=== PATIENT | male | born 1945 | race Two or more races ===

== ENCOUNTER → 2016-10-17 | Outpatient (CLI) | payer MEDICARE, MEDICAID ==
[2016-10-17 11:30] LABS: CHOLESTEROL 142.91 mg/dL (0-200); Direct HDL 39 mg/dL (>40); TRIGLYCERIDES 100 mg/dL (<150)
[2016-10-17 11:41] LABS: DIRECT LDL 90 mg/dL (<100)
== END ==
LOC: LAB 10:49
PROVIDERS: ATTEND Internal Medicine
DX: E78.5 Hyperlipidemia, unspecified (principal); E11.9 Type 2 diabetes mellitus without complications
CPT/HCPCS: 36415; 80061; 82043; 83036

== ENCOUNTER → 2017-01-29 | Outpatient (CLI) | payer MEDICARE, MEDICAID ==
[2017-01-29 12:02] LABS: ABSOLUTE BASOPHILS # (AUTO) 0.1 10^3/uL (0.0-0.2); ABSOLUTE EOSINOPHILS # (AUTO) 0.3 10^3/uL (0.0-0.6); ABSOLUTE LYMPHOCYTES (AUTO) 2.7 10^3/uL (0.5-4.7); ABSOLUTE NEUT (AUTO) 4.6 10^3/uL (1.7-8.2); BASOPHILS % (AUTO) 0.9 % (0-2); EOSINOPHILS % (AUTO) 3.7 % (0-6); HEMATOCRIT 42.7 % (37.9-51.0); HEMOGLOBIN 13.9 g/dL (13.5-17.0); LYMPHOCYTES % (AUTO) 31.2 % (13-45); MEAN CORPUSCULAR HEMOGLOBIN 29.8 pg (27.0-33.4); MEAN CORPUSCULAR HGB CONC 32.6 g/dL (32.0-36.0); MEAN CORPUSCULAR VOLUME 92 fl (80-97); MONOCYTES % (AUTO) 11.3 % (3-13); RED BLOOD COUNT 4.67 10^6/uL (4.35-5.55); RED CELL DISTRIBUTION WIDTH 14.8 % (11.5-14.0); SEGMENTED NEUTROPHILS % (AUTO) 52.9 % (42-78); WHITE BLOOD COUNT 8.7 10^3/uL (4.0-10.5)
[2017-01-29 12:18] LABS: ALANINE AMINOTRANSFERASE 36 U/L (21-72); ALBUMIN 4.9 g/dL (3.5-5.0); ALKALINE PHOSPHATASE 73 U/L (38-126); ANION GAP 14 (5-19); ASPARTATE AMINO TRANSFERASE 33 U/L (17-59); BILIRUBIN,DIRECT 0.4 mg/dL (0.0-0.4); BILIRUBIN,TOTAL 0.8 mg/dL (0.2-1.3); BLOOD UREA NITROGEN 25 mg/dL (7-20); CALCIUM 10.5 mg/dL (8.4-10.2); CARBON DIOXIDE 23 mmol/L (22-30); CHLORIDE 103 mmol/L (98-107); CHOLESTEROL 192.24 mg/dL (0-200); CREATININE RESULT 0.67 mg/dL (0.52-1.25); Direct HDL 48 mg/dL (>40); GLUCOSE 115 mg/dL (75-110); POTASSIUM 4.9 mmol/L (3.6-5.0); SODIUM 139.5 mmol/L (137-145); TOTAL PROTEIN 8.2 g/dL (6.3-8.2); TRIGLYCERIDES 91 mg/dL (<150)
[2017-01-29 12:31] LABS: DIRECT LDL 121 mg/dL (<100)
[2017-01-30 11:40] LABS: CREATININE URINE 67.8 mg/dL (Not Estab.); MICROALBUMIN URINE 44.4 ug/mL (Not Estab.)
== END ==
LOC: LAB 11:39
PROVIDERS: ATTEND Family Medicine Geriatric Medicine
DX: E11.9 Type 2 diabetes mellitus without complications (principal); I10 Essential (primary) hypertension; E78.5 Hyperlipidemia, unspecified; N40.1 Benign prostatic hyperplasia with lower urinary tract symptoms; Z79.899 Other long term (current) drug therapy
CPT/HCPCS: 36415; 80053; 80061; 82043; 82570; 83036; 84153; 84443; 85025

== ENCOUNTER → 2017-05-08 | Outpatient (CLI) | payer MEDICARE, MEDICAID ==
[2017-05-08 11:52] LABS: ALANINE AMINOTRANSFERASE 55 U/L (21-72); ALBUMIN 4.7 g/dL (3.5-5.0); ALKALINE PHOSPHATASE 82 U/L (38-126); ANION GAP 12 (5-19); ASPARTATE AMINO TRANSFERASE 48 U/L (17-59); BILIRUBIN,DIRECT 0.4 mg/dL (0.0-0.4); BILIRUBIN,TOTAL 0.7 mg/dL (0.2-1.3); BLOOD UREA NITROGEN 23 mg/dL (7-20); CALCIUM 10.2 mg/dL (8.4-10.2); CARBON DIOXIDE 26 mmol/L (22-30); CHLORIDE 103 mmol/L (98-107); CHOLESTEROL 113.32 mg/dL (0-200); CREATININE RESULT 0.66 mg/dL (0.52-1.25); Direct HDL 53 mg/dL (>40); GLUCOSE 113 mg/dL (75-110); POTASSIUM 4.3 mmol/L (3.6-5.0); SODIUM 140.9 mmol/L (137-145); TOTAL PROTEIN 7.2 g/dL (6.3-8.2); TRIGLYCERIDES 43 mg/dL (<150)
[2017-05-08 12:02] LABS: DIRECT LDL 45 mg/dL (<100)
[2017-05-09 10:38] LABS: CREATININE URINE 122.1 mg/dL (Not Estab.); MICROALBUMIN URINE 79.8 ug/mL (Not Estab.)
== END ==
LOC: LAB 11:02
PROVIDERS: ATTEND Family Medicine Geriatric Medicine
DX: E11.9 Type 2 diabetes mellitus without complications (principal); I10 Essential (primary) hypertension; E83.52 Hypercalcemia; Z79.899 Other long term (current) drug therapy
CPT/HCPCS: 36415; 80048; 80061; 80076; 82043; 82570; 83970

== ENCOUNTER → 2017-05-22 | Outpatient (CLI) | payer MEDICARE, MEDICAID ==
--- NOTE | 2017-05-22 16:09 | RADIOLOGY REPORT (SQ) ---
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 Selected additional c olor/power Doppler images recorded. All images stored to PACS. LIMITATIONS: None. FINDINGS: RIGHT LOBE: Normal size, 4.2 x 2 x 1.1 cm. Homogeneous echotexture. Tiny [address] lower pole right lobe thyroid. No solid masses. LEFT LOBE: Normal size, 3.8 x 2.1 x 1.4 cm Homogeneous echotexture. No cystic or solid masses. ISTHMUS: Normal size. Homogeneous echotexture. No cystic or solid masses. OTHER: Patient describes swelling under his right and left mandibular ankles bilaterally. Normal siz e submandibular glands are present without calculi. No lymph nodes. Incidental finding of soft plaque in the left common carotid artery with less than 50% diameter narro wing. This is similar compared to carotid Doppler 08/29/2016. IMPRESSION: NORMAL THYROID ULTRASOUND. No focal masses in the right or left submandibular triangle TECHNICAL DOCUMENTATION: JOB ID: [id number] [employer]- All Rights Reserved
== END ==
LOC: RAD 12:28
PROVIDERS: ATTEND Family Medicine Geriatric Medicine
DX: E01.0 Iodine-deficiency related diffuse (endemic) goiter (principal)
CPT/HCPCS: 76536

== ENCOUNTER → 2017-08-07 | Outpatient (CLI) | payer MEDICARE, MEDICAID ==
[2017-08-08 11:40] LABS: CREATININE URINE 78.8 mg/dL (Not Estab.); MICROALBUMIN URINE 75.6 ug/mL (Not Estab.)
== END ==
LOC: LAB 12:27
PROVIDERS: ATTEND Family Medicine Geriatric Medicine
DX: E11.8 Type 2 diabetes mellitus with unspecified complications (principal); Z79.899 Other long term (current) drug therapy
CPT/HCPCS: 36415; 82043; 82570; 83036

== ENCOUNTER 2017-11-01 10:32 | Day surgery (SDC) | payer MEDICARE, MEDICAID ==
[~2017-11-01 10:32] MED LIST: CEFAZOLIN 1 GM/D5W RTU 1 GM/50 ML RTUPB IV PRN; LACTATED RINGERS 1000 ML IV PRN; LIDOCAINE 0.5% INJ-PF (5 MG/ML) 50 ML SDV SUBCUT PRN
[2017-11-01] MEDS ORDERED: ALBUTEROL SULFATE 0.083% NEB 2.5 MG/3 ML AMPUL NEB ONE (11:07)
[2017-11-01 11:43] LABS: HEMATOCRIT 37.1 % (37.9-51.0); HEMOGLOBIN 12.7 g/dL (13.5-17.0); MEAN CORPUSCULAR HEMOGLOBIN 31.3 pg (27.0-33.4); MEAN CORPUSCULAR HGB CONC 34.3 g/dL (32.0-36.0); MEAN CORPUSCULAR VOLUME 91 fl (80-97); PLATELET COUNT 190 10^3/uL (150-450); RED BLOOD COUNT 4.07 10^6/uL (4.35-5.55); RED CELL DISTRIBUTION WIDTH 13.2 % (11.5-14.0); WHITE BLOOD COUNT 7.2 10^3/uL (4.0-10.5)
[2017-11-01] MEDS ORDERED: FAMOTIDINE INJ/PF 20 MG/2 ML SDV IV ONE (11:45)
[2017-11-01] MEDS ORDERED: METOPROLOL TARTRATE 25 MG TABLET PO ONE (12:00)
[2017-11-01 12:01] LABS: ANION GAP 11 (5-19); BLOOD UREA NITROGEN 26 mg/dL (7-20); CARBON DIOXIDE 27 mmol/L (22-30); CHLORIDE 102 mmol/L (98-107); GLUCOSE 171 mg/dL (75-110); POTASSIUM 3.8 mmol/L (3.6-5.0); SODIUM 139.9 mmol/L (137-145)
[2017-11-01] MEDS ORDERED: OXYMETAZOLINE HCL 0.05% NASAL SPRAY 15 ML BOTTLE ONE (13:04)
--- NOTE | 2017-11-01 13:22 | EKG REPORT ---
SEVERITY:- ABNORMAL ECG - SINUS TACHYCARDIA FIRST DEGREE AV BLOCK LEFT BUNDLE BRANCH BLOCK : Confirmed by: Ricardo Giraldo MD 01-Nov-2017 13:21:30
[2017-11-01] MEDS ORDERED: FENTANYL CITRATE INJ/PF 100 MCG/2 ML AMPUL ONE (14:55)
[2017-11-01] MEDS ORDERED: MIDAZOLAM 2 MG/2 ML INJ ONE (14:56)
[2017-11-01] MEDS ORDERED: PROPOFOL INJ 200 MG/20 ML VIAL IV ONE (14:56)
[2017-11-01] MEDS ORDERED: KETAMINE HCL INJ 500 MG/10 ML VIAL ONE (15:14)
[2017-11-01] MEDS ORDERED: ONDANSETRON HCL INJ/PF 4 MG/2 ML SDV ONE (15:31)
[2017-11-01] MEDS ORDERED: LIDOCAINE 2% INJ-PF (20 MG/ML) 2 ML AMPUL ONE (15:31)
[2017-11-01] MEDS ORDERED: DEXAMETHASONE SOD PHOSPHATE INJ 4 MG/1 ML VIAL ONE (15:31)
[2017-11-01] MEDS ORDERED: SUCCINYLCHOLINE CHLORIDE INJ 200 MG/10 ML VIAL ONE (15:31)
[2017-11-01] MEDS ORDERED: PHENYLEPHRINE HCL INJ/PF 10 MG/1 ML SDV ONE (15:31)
[2017-11-01] MEDS ORDERED: RINGERS SOLUTION,LACTATED 1,000 ML IV PRN (16:05)
[2017-11-01] MEDS ORDERED: HYDROCOD/ACETAMIN 7.5-325 MG/15 ML ORAL SOLN UDCUP PO PRN (16:08)
[2017-11-01] MEDS ORDERED: ONDANSETRON HCL INJ/PF 4 MG/2 ML SDV IV PRN (16:08)
[2017-11-01] MEDS ORDERED: ACETAMINOPHEN 100 ML IV ONE (17:20)
[2017-11-01 18:46] VITALS: BP 132/67
--- NOTE | 2017-11-04 20:54 | OPERATIVE REPORT E ---
Operative Report NAME: DESTINEY HERRERA : 1945 AGE: 71Y DATE OF SURGERY: 11/01/2017 ROOM: PREOPERATIVE DIAGNOSES: 1. HYPOPHARYNGEAL MASS. 2. CHRONIC DYSPHAGIA. POSTOPERATIVE DIAGNOSES: 1. HYPOPHARYNGEAL MASS. 2. CHRONIC DYSPHAGIA. OPERATION PERFORMED: Rigid pharyngoscopy with directed biopsies. SURGEON: DEIRDRE ELDRIDGE D.O. ANESTHETIC: General endotracheal tube. ANESTHESIA STAFF: Noemy Pabon CRNA COMPLICATIONS: None. DRAINS: None. SPONGE COUNT: Verified. MATERIALS FORWARDED SPECIMEN: 1. Numerous biopsies from the right hypopharyngeal/base of tongue area. 2. Multiple biopsies from the laryngeal aspect of the epiglottis. 3. Multiple biopsies from the right true vocal cord. FINDINGS: 1. Right hypopharyngeal/base of tongue area with an exophytic, friable mass. 2. The laryngeal aspect of the epiglottis with an exophytic, friable mass. 3. 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 INDICATIONS: This is a 71-year-old male who was seen and evaluated in the [place] otolaryngology office. The patient with a 50-year smoking history and continues to smoke at present. The patient was referred by his PCM for evaluation with a history of persistent right sore throat discomfort for greater than 6 months. The patient otherwise denies fever, chills, night sweats, dysphagia, odynophagia, aspiration symptoms or unexplained weight loss. The patient's family members to include his son and daughter are present for clinic visit due to the patient's poor Belgian and as he is predominantly Croatian speaking. The patient underwent CT neck imaging with concern for a right aryepiglottic fold mass also extending and affecting the right epiglottis and base of tongue. On clinic endoscopies, there were findings as noted above. The patient underwent an extensive and lengthy medical workup to include cardiology clearance to be able to proceed to the main operating room. Once deemed medically stable for surgery, the patient was able to proceed with the previously-described rigid pharyngoscopy with directed biopsies. The procedure and all of its risks and complications were all discussed in detail with the patient's family. The patient and his family all voiced an understanding of all that had been discussed. They desired to proceed, and consent was obtained. PROCEDURE: The patient was taken to the main operating Room and placed on the operating room tablet in the supine position. Appropriate monitors were placed. Using mask and IV access, general anesthesia was induced. The patient was next transorally intubated without difficulty. The patient was then positioned and prepped for rigid laryngoscopy. There was a rigid laryngoscope that was passed with the areas of concern easily identified. Numerous biopsies were taken, as noted above, to include biopsies from the right true vocal cord. The pathologist verified that there was adequate tissue that had been received. At this point, 2 Afrin-soaked neuro patties were placed into the areas that had been biopsied. The rigid laryngoscope was withdrawn and the patient was returned to the anesthesia staff and was allowed to emerge from general anesthesia. The patient was extubated in the main operating room and was transported to the post anesthesia recovery unit in stable condition. There were no complications. DICTATING PHYSICIAN: DEIRDRE ELDRIDGE D.O. [id number] PHY#: [id number] ID: [id number] JOB#: [id number] ACCT: [id number] cc:DEIRDRE ELDRIDGE D.O. >
== END 2017-11-01 18:35 | disposition home or self-care (01) ==
LOC: OROUT 10:32
PROVIDERS: ATTEND Otolaryngology
PROC: 0CBM8ZX Excision of Pharynx, Via Natural or Artificial Opening Endoscopic, Diagnostic (ICD-10-PCS; principal; 2017-11-01 12:00)
DX: C13.9 Malignant neoplasm of hypopharynx, unspecified (principal); J39.2 Other diseases of pharynx; M54.2 Cervicalgia; J44.9 Chronic obstructive pulmonary disease, unspecified; I10 Essential (primary) hypertension; I25.10 Atherosclerotic heart disease of native coronary artery without angina pectoris; F17.210 Nicotine dependence, cigarettes, uncomplicated; E11.42 Type 2 diabetes mellitus with diabetic polyneuropathy; E11.21 Type 2 diabetes mellitus with diabetic nephropathy; E78.5 Hyperlipidemia, unspecified; I25.2 Old myocardial infarction; Z95.0 Presence of cardiac pacemaker; Z99.81 Dependence on supplemental oxygen; Z79.51 Long term (current) use of inhaled steroids; Z79.84 Long term (current) use of oral hypoglycemic drugs
CPT/HCPCS: 36415; 85027; 80048; 88305 ×2; 88331 ×2; 93005; 93010; 42999; J2250; J0690; J1100; J3010; J3490 ×3; J2370; J0330; J2405; J2704; S0028; A9270 ×2; J0131; 320

== ENCOUNTER → 2017-11-10 | Outpatient (CLI) | payer MEDICARE, MEDICAID ==
--- NOTE | 2017-11-11 11:57 | RADIOLOGY REPORT (SQ) ---
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 RADIONUCLIDE AND DOSE: 10.0 mCi F18 FDG The route of agent administration: Intravenous FASTING BLOOD SUGAR: 118 mg/dl CONTRAST TYPE AND DOSE: No CT contrast given. TECHNIQUE: Blood glucose level was verified. Above dose of FDG was injected intravenously. 2-D seg mented attenuation correction images were obtained from the base of the skull to the midthighs. Nonc ontrast CT images were obtained for attenuation correction and fusion with emission images. CT image s were performed without oral or intravenous contrast and are not sensitive for parenchymal lesions. A series of overlapping emission PET images were obtained. Images reviewed and manipulated at [facility][note 3][employer] work station by the radiologist. Images stored on PACS. LIMITATIONS: None. FINDINGS: HEAD AND NECK: Right side supraglottic mass extending from the tongue base to the level of the vocal cords. Mean SUV value 23.7. This corresponds with finding on previous CT. Small focal a artemio of increased activity in the soft tissues on the right side at the level of the thyroid cartilage (CT axial series 3, image 53). Mean SUV value 4.55. On noncontrast CT difficult to differentiate a soft tissue mass from the adjacent jugular vein. CHEST: No areas of abnormal metabolic activity in the chest. ABDOMEN AND PELVIS: No areas of abnormal metabolic activity in the abdomen or pelvis. Expected physi ologic activity is present in the genitourinary system and bowel. PROXIMAL LOWER EXTREMITIES: No areas of abnormal metabolic activity in the soft tissues of the lower extremities. BONES: No abnormal metabolic activity in the visualized skeleton. ADDITIONAL CT FINDINGS: No additional significant findings on the noncontrast CT images. OTHER: No other significant findings. IMPRESSION: 1. RIGHT SIDE SUPRAGLOTTIC MASS WITH INCREASED ACTIVITY CORRESPONDING TO KNOWN PRIMARY MALIGNANCY. A SMALL FOCAL AREA OF ACTIVITY IN THE SOFT TISSUES ON THE RIGHT SIDE DESCRIBED, LOCATED IMMEDIATELY ADJACENT TO THE JUGULAR VEIN AT THE LEVEL OF THE THYROID CARTILAGE, PRESUMABLY REPRESENTS A METASTAT IC LYMPH NODE, DIFFICULT TO VISUALIZE ON NONCONTRAST CT IMAGING. 2. NO AREAS OF ABNORMAL METABOLIC ACTIVITY IN THE CHEST, ABDOMEN, PELVIS, OR UPPER THIGHS. NO SIGNIF ICANT CT FINDINGS ELSEWHERE. TECHNICAL DOCUMENTATION: JOB ID: [id number] [employer]- All Rights Reserved Reading location - IP/workstation name: [email or web address]
== END ==
LOC: RAD 18:52
PROVIDERS: ATTEND Internal Medicine
DX: C01 Malignant neoplasm of base of tongue (principal)
CPT/HCPCS: 78815; A9552

== ENCOUNTER 2017-11-21 05:33 | Day surgery (SDC) | payer MEDICARE, MEDICAID ==
--- NOTE | 2017-11-20 13:16 | RADIOLOGY REPORT (SQ) ---
EXAM DESCRIPTION: CHEST PA/LATERAL COMPLETED DATE/TIME: 11/20/2017 12:23 pm REASON FOR STUDY: PRE OP COMPARISON: 09/05/2015. EXAM PARAMETERS: NUMBER OF VIEWS: two views TECHNIQUE: Digital Frontal and Lateral radiographic views of the chest acquired. RADIATION DOSE: NA LIMITATIONS: none FINDINGS: LUNGS AND PLEURA: Marked hyperinflation lungs compatible with COPD. Tenting of the left h emidiaphragm laterally consistent chronic left pleural thickening. No acute infiltrates. MEDIASTINUM AND HILAR STRUCTURES: No masses or contour abnormalities. HEART AND VASCULAR STRUCTURES: The heart is normal in size with normal pulmonary vasculature. . The heart is normal with aortic atherosclerosis. HARDWARE: None in the chest. OTHER: No other significant finding. IMPRESSION: COPD. Chronic left basilar scarring and pleural thickening. TECHNICAL DOCUMENTATION: JOB ID: [id number] [employer]- All Rights Reserved Reading location - IP/workstation name: [email or web address]
[~2017-11-21 05:33] MED LIST changes: +ACETAMINOPHEN 325 MG TABLET PO PRN; -LACTATED RINGERS 1000 ML IV PRN; +NORMAL SALINE 1000 ML (RENAL PATIENTS) IV PRN
[2017-11-21] MEDS ORDERED: LIDOCAINE 2% INJ-PF (20 MG/ML) 10 ML AMPUL ONE (07:03)
[2017-11-21] MEDS ORDERED: FENTANYL CITRATE INJ/PF 100 MCG/2 ML AMPUL ONE (07:03)
[2017-11-21] MEDS ORDERED: MIDAZOLAM 2 MG/2 ML INJ ONE (07:03)
[2017-11-21] MEDS ORDERED: PROPOFOL INJ 200 MG/20 ML VIAL IV ONE ×2 (07:04→07:05)
[2017-11-21] MEDS ORDERED: LIDOCAINE 1%/EPINEPHRINE INJ 20 ML VIAL ONE (07:21)
[2017-11-21] MEDS ORDERED: ONDANSETRON HCL INJ/PF 4 MG/2 ML SDV IV PRN (07:57)
[2017-11-21] MEDS ORDERED: FENTANYL CITRATE INJ/PF 100 MCG/2 ML AMPUL IV PRN ×3 (07:57)
[2017-11-21] MEDS ORDERED: OXYCODONE-ACETAMINOPHEN 5-325 MG TABLET PO PRN (07:57)
[2017-11-21] MEDS ORDERED: MEPERIDINE HCL/PF INJ 25 MG/1 ML DISP.SYRIN IV PRN (07:57)
[2017-11-21] MEDS ORDERED: PROMETHAZINE HCL INJ 25 MG/1 ML VIAL IV PRN (07:57)
[2017-11-21] MEDS ORDERED: DIPHENHYDRAMINE HCL 50 MG/ML VIAL IV PRN (07:57)
--- NOTE | 2017-11-21 08:44 | Discharge Summary ---
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 Referrals: TATA ORTEZ MD [Primary Care Provider] - Discharge Diet: Tube Feeding (Comments) - Per instructions. Discharge Activity: Activity As Tolerated Home Care Assistance: None Needed Report the Following to Your Physician Immediately: Shortness of Breath, Increase in Pain, Fever over 101 Degrees
--- NOTE | 2017-11-21 08:53 | Operative Report ---
Operative Report DATE OF SURGERY: 11/21/17 PREOPERATIVE DIAGNOSIS: Subglottic tumor right side POSTOPERATIVE DIAGNOSIS: Same with gastroparesis OPERATION: 1. Focused ultrasound of the right neck. 2. Ultrasound directed single-chamber Rfutqi-s-Mfta catheter in the subclavian position and the catheter in the right internal jugular vein. 3. Interpretation of intraoperative fluoroscopy. 4. Esophagogastroduodenoscopy. 5. Percutaneous endoscopic gastrostomy tube placement, 20 Rwandan, Endo vie SURGEON: JOHN NORRIS ANESTHESIA: LMAC TISSUE REMOVED OR ALTERED: None COMPLICATIONS: None ESTIMATED BLOOD LOSS: Scant INTRAOPERATIVE FINDINGS: See below PROCEDURE: The patient was taken to the preop holding her to the main operating room where he was placed in supine position arms tucked head and neck prepped and draped in sterile fashion for anticipated right sided port placement Surgical plan and surgical timeout were conducted Using ultrasound as a guide real-time, and the right internal jugular vein was cannulated after anesthetizing the skin with 1% plain lidocaine using the micropuncture needle and wire. A suitable site for placement of the port chamber was chosen in the right subclavian position. Skin was anesthetized with 1% plain lidocaine, 3 cm incision was made parallel to the goal, and the deep subcutaneous pocket developed with electrocautery blunt dissection. Tract between the port site and the neck stick site anesthetized with plain lidocaine, the catheter was then tunneled between the 2 wounds, trimmed to the appropriate length, attached to the port with the reinforcing ring. The port was tucked into the pocket. Under fluoroscopic guidance, we switched the micro wire over to a conventional 0.030 guidewire. The threaded the 9 Rwandan dilator and sheath over the wire under fluoroscopic guidance, removed the wire and dilator, threaded the catheter into the strip away sheath and removing the strip away sheath leaving the catheter in good position with the tip in the superior vena cava, no kinking of the catheter. There is no evidence of pneumothorax. There is no evidence of ectopy. The catheter was aspirated to the chamber function satisfactorily and was flushed with heparinized saline. Wounds closed with 3-0 Vicryl benzoin and Steri-Strips. This concluded the port placement portion of the procedure We now set the patient up for PEG placement. The endoscopy team was on the scene. Oral mouthpiece was inserted into the patient's mouth even though he was edentulous. The patient was placed in reverse Trendelenburg. A second timeout was conducted. The adult flexible upper endoscope was advanced through the hypopharynx around the distorted epiglottis secondary to tumor and down the upper esophagus. This proceeded uneventfully. The esophagus was grossly unremarkable. Once we are in the stomach, there was a moderate amount of retained undigested food. Photos were taken. The stomach could not be aspirated of this food through the scope. Therefore complete visualization of the stomach was limited however there was no evidence of gross endoluminal pathology. The scope was advanced to the pylorus into the first and second portions of the duodenum which were unremarkable. The scope was brought back to the pylorus which was unremarkable. There was no mechanical evidence of gastric outlet obstruction therefore I felt it was appropriate to place the feeding tube. A suitable site for placement of feeding tube was chosen on the patient's left upper abdominal wall in the epigastric region after distending the stomach with air. The associated skin was prepped with alcohol anesthetized with 1%, a billy made in the skin with 11 blade, and opened with hemostats. Jelco needle and sheath threaded through the abdominal wall into the lumen of the stomach. The green pull-through wire was pushed through the Jelco and retrieved with the endoscopic snare. The scope snare and wire were pulled out of the patient's oropharynx. A 20 Rwandan Endo I pullout type catheter was pushed over the wire and brought to the patient's anterior abdominal wall uneventfully with the skin at the 3 cm julio césar. Bolster in attachments and adapters placed on the PEG tube. Repeat upper endoscopy performed by Dr. Norris performed uneventfully and confirmed satisfactory placement of the feeding tube. Scope was withdrawn. Patient tolerated procedure well, taken recovery room in stable condition.
--- NOTE | 2017-11-21 08:57 | RADIOLOGY REPORT (SQ) ---
EXAM DESCRIPTION: FLUORO/CV PLACEMENT COMPLETED DATE/TIME: 11/21/2017 8:41 am REASON FOR STUDY: PORTACATH PLCMT RT SIDE ASST WITH FLUORO IN OR C01 MALIGNANT NEOPLASM OF BASE OF TONGUE COMPARISON: None. FLUOROSCOPY TIME: 0.1 minute. 5 images saved to PACS. TECHNIQUE: Intra-operative images acquired during surgical procedure to evaluate progress. NUMBER OF IMAGES: 5 images. LIMITATIONS: None. FINDINGS: Images of the chest acquired during port placement. IMPRESSION: IMAGE(S) OBTAINED DURING PROCEDURE. COMMENT: Quality ID [id number]: Final reports for procedures using fluoroscopy that document radiation exp osure indices, or exposure time and number of fluorographic images (if radiation exposure indices are not available) Please consult full operative report of the attending physician for description of the procedure. TECHNICAL DOCUMENTATION: JOB ID: [id number] [employer]- All Rights Reserved Reading location - IP/workstation name: [email or web address]
[2017-11-21 10:58] VITALS: BP 146/63
== END 2017-11-21 11:01 | disposition home or self-care (01) ==
LOC: OROUT 05:33
PROVIDERS: ATTEND Surgery
PROC: 0DH63UZ Insertion of Feeding Device into Stomach, Percutaneous Approach (ICD-10-PCS; principal; 2017-11-21 07:30)
PROC: 05HM33Z Insertion of Infusion Device into Right Internal Jugular Vein, Percutaneous Approach (ICD-10-PCS; 2017-11-21 07:30)
DX: C32.2 Malignant neoplasm of subglottis (principal); E11.43 Type 2 diabetes mellitus with diabetic autonomic (poly)neuropathy; K31.84 Gastroparesis; I10 Essential (primary) hypertension; I15.9 Secondary hypertension, unspecified; E78.00 Pure hypercholesterolemia, unspecified; F17.210 Nicotine dependence, cigarettes, uncomplicated; J44.9 Chronic obstructive pulmonary disease, unspecified; M19.90 Unspecified osteoarthritis, unspecified site; I49.9 Cardiac arrhythmia, unspecified; Z79.899 Other long term (current) drug therapy; Z79.82 Long term (current) use of aspirin; Z79.84 Long term (current) use of oral hypoglycemic drugs; Z79.51 Long term (current) use of inhaled steroids
CPT/HCPCS: 36415; 82962; 71046; 77001; 43246; 36561; C1752; C1788; J2250; J0690; J3010; J3490 ×2; J2704; J1642; 731

== ENCOUNTER → 2018-01-16 | Outpatient (CLI) | payer MEDICARE, MEDICAID ==
--- NOTE | 2018-01-16 10:47 | ST Modified Barium Swallow ---
Recommendation - Recommendations Recommendations: Safest PO diet judged to be honey thick liquids and soft solids. Patient's family to contact outpatient office to schedule dysphagia treatment sessions. Due to underlying throat cancer and possibility of additional chemotherapy and radiation therapy, patient may need a dietary/ nutritional consult for increased reliance on PEG feedings. Medical Diagnoses - Medical Diagnoses Medical Diagnosis Description & ICD-10 Code(s): dysphagia R13.10 Other Medical Diagnoses/Co-Morbidities: diabetes, high blood pressure, history of smoking, depression, COPD, high cholesterol, reflux, anxiety, coronary artery disease, stoke, hypopharynx lesion ST Modified Barium Swallow - General Date: 01/16/18 Referring Physician: Dr. Renner Reason for Referral: difficulty swallowing after throat cancer diagnosis - History History obtained from: Patient - This paitent was evaluated on 12/19/17 at chairside for swallowing. Patient's family reports no changes in medical status since that time. History taken at the time of that evaluation is as follows: Patient is a 71 year old male referred by Dr. Renner who attended today's session with his son. Patient reports he was diagnosed with throat cancer in October of this year. Patient reports that he is going through chemo currently and will start radiation in January. 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 Patient reports difficulty swallowing over the past year. Patient's son reports that the cancerous mass is near his vocal cords. Patient reports that he previously had difficulty talking because his voice did not come out, but it has improved with chemo. Patient reports laryngeal pain which worsens while swallowing and after multiple swallows throughout a meal. Patient reports difficulty managing secretions. Patient's son reports that the patient does have a G-tube which was placed about a month ago. Patient's son reports his father does eat orally as well, but only eats soft solids. Patient reports that the patient has difficulty swallowing liquids - coughs often. Patient reports he has no difficulty swallowing soft foods, but he reports that he fatigues during a meal and it becomes harder to swallow. As of 01/16/18, no radiation therapy has been administered, but this is still a possibility., Family -: Medical Medications: hydrocodone - acetaminophen, lidocaine HCl, Relan Allergies: no known allergies - Functional Status Prior Functional Status: INDEPENDENT: feeding - independent Current Functional Limitations: feeding - modified diet - Subjective Patient/caregiver goal(s): safe swallow Cognitive-Linguistic Function: Functional Speech Intelligibility: Reduced intelligibility - garbled voice quality Current Nutritional Means: PO Current PO diet: Soft, Regular - thin liquids Current symptoms: Poor intake, Coughing Pain: Patient reports, 0/5 - Objective Assessment: Upright, Left Lateral - Food Trials Used Food trials used: Thin liquids, Honey-thickened liquids, Maramec thick liquids, Pureed, Regular The patient: Was Able to Self Feed - Oral-Motor Skills Laryngeal Function: Weak Cough - Assessment Oral prep: Normal Labial closure: Adequate Leakage: None Mastication: Adequate Lingual Movement: Normal Oral stage: Normal for this Procedure - Pharyngeal Stage Initiation of Pharyngeal Stage Reflex: Normal Decreased laryngeal elevation: Yes Reduced Velopharyngeal Closure: no Reduced pressure generation: No reduced tongue-based retraction: No Pre-swallow pooling in valleculae: None Pre-Swallow pooling in pyriforms: None Reduced Thyro-Hyoid approximation: Yes Reduced epiglottic excursion: No Post-swallow residulas vallecular: Moderate Post-Swallow residuals in pyriforms: None - Fall Risk Assessment Medications/Conditions that increase fall risks include: Antidepressants, sedatives, anti-arrhythmic, diuretic, benzodiazipenes, neuroleptics. BP regulation problems, cardiac problems, balance or gait deficits, neurological problems. Fall Risk Actions Taken: No action needed - Behavioral Observations During evaluation process patient: was pleasant, was cooperative - Treatment / Educational Needs: Treatment/Education Needs: Treatment consisted of patient education on the role of the Speech Pathologist. Patient's plan of care and golas were communicated as well as scheduling and attendance policies. Recommendations for initial home program were shared. Patient demonstrated understanding and verbalized agreement. - Impression/Summary Laryngeal Penetration: Yes, during swallow Consistency: Thin, Maramec, Honey, Pudding Tracheal Aspiration: yes - during the swallow with thin liquid and after the swallow with residue of penetrated nectar liquid, delayed cough Productive cough: Yes - when cued Effective compensatory strategies: throat clear & reswallow Patient presents with: Pharyngeal stage dysph., Severe Risk of Aspiration: Moderate Evaluation and Findings: Patient presents with severe pharyngeal dysphagia. This is characterized by penetration of all trial textures, and subsequent aspiration of thin and nectar. Laryngeal vestibule was not fully closing during the swallow, allowing material to enter. Thin liquid is then immediately aspirated (small amount), with delayed cough reflex. Maramec liquid which was penetrated subsequently aspirated (trace amount) with no cough reflex. Other textures also penetrated, but cleared laryngeal vestibule with cued throat clear and re-swallow. Safest PO diet is judged to be honey thick liquids and soft solids. Due to patient's underlying throat cancer and ongoing treatment, patient may need to have more reliance on enteral feedings. Continued chemotherapy or radiotherapy are highly likely to have continued negative effects on the swallow mechanism. - Recommendations Solid diet recommendations: Mechanical Soft Liquid Diet Modification: Honey-Thick Strict aspiration precautions: Yes Pt/Family education and followup with MD: Yes Dysphagia therapy with [employer]IPPER: yes, f/u with current thera. Recommended techniques: Fully Upright During Meal, Small Bites and Sips Information, Precautions and Recommendations: Patient (Written), Patient (Verbal ), Family Member (Written), Family Member (Verbal) - Time Total Time: 25 - Plan of Care POC Procedures/Codes: therapeutic trials, pharyngeal exercises, laryngeal exercises, pt/family education, behavioral/dietary mod, MBSS (90487) Strategies to optimize patient understanding include:: ongoing assessment of educational needs, implementation of educational strategies, and re-education. - - -: Thank you for the opportunity to work with this patient and his/her family. Should you have any questions about this patient's plan or progress, I can be reached at [phone]. Charge G Code? - - -: Yes ST F.L. Impairment Category - Rationale Based On Rationale Based On: Func. Asses. Tool Results - Swallowing Current G8996: CK 40-59% Impaired Goal G8997: CJ 20-39% Impaired
--- NOTE | 2018-01-16 11:26 | RADIOLOGY REPORT (SQ) ---
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 Correlation with report from prior CT 07/15/2017. TECHNIQUE: Post IV contrasted scanning from skull base through lung apices with review of bone, soft tissue and lung windows. Reconstructed coronal and sagittal MPR images reviewed. All images stored on PACS. All CT scanners at this facility use dose modulation, iterative reconstruction, and/or weight based d osing when appropriate to reduce radiation dose to as low as reasonably achievable (ALARA). [facility]: Dose Right [facility]: CareDose [facility]: Dose Right [facility]: Teradose 4D [facility]: Zoomabet CONTRAST TYPE AND DOSE: contrast/concentration: Isovue 370.00 mg/ml; Total Contrast Delivered: 75.0 ml; Total Saline Delivered: 55.0 ml RENAL FUNCTION: BUN 18 creatinine 0.7 RADIATION DOSE: . LIMITATIONS: None. FINDINGS: SKULL BASE: Intact. MAJOR SALIVARY GLANDS: Right submandibular gland is larger than the left. Indistinct margins between right tongue base hypopharyngeal mass and submandibular gland. LYMPHADENOPATHY: No adenopathy. MUCOSAL MASSES OR ASYMMETRY: Supraglottic mass to right of midline in the hypopharynx measuring about 2.8 x 1.3 cm in AP by transverse diameter by 3 cm craniocaudal diameter. Mass extends superior and inferior to the hyoid bone and extends slightly to left of midline. LARYNX/CORDS: No abnormal findings. VASCULAR STRUCTURES: There is a tonsillar loop in the right internal carotid superior to the hypophar yngeal mass. 50% stenosis proximal left ICA. LUNG APICES: Clear. BONES: Intact. THYROID: Normal size. No masses. PARANASAL SINUSES: Clear. OTHER: Right-sided port extends into the SVC, partially visualized. IMPRESSION: Slight decrease in size of right hypopharyngeal and tongue base mass. TECHNICAL DOCUMENTATION: JOB ID: [id number] Quality ID # 436: Final reports with documentation of one or more dose reduction techniques (e.g., Au tomated exposure control, adjustment of the mA and/or kV according to patient size, use of iterative reconstruction technique) 2010 [employer]- All Rights Reserved Reading location - IP/workstation name: [email or web address]
--- NOTE | 2018-01-16 15:33 | RADIOLOGY REPORT (SQ) ---
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 TECHNIQUE: Videofluoroscopic swallowing examination was performed in conjunction with speech patholo gy. Videofluoroscopic imaging was obtained and reviewed and these are the findings: RADIATION DOSE: 2.3 minutes of fluoroscopy was used. 1 images saved to PACS. LIMITATIONS: None FINDINGS: The patient was brought into the fluoro room and placed upright on a modified barium swall ow chair. The patient was then given multiple consistencies mixed with barium to swallow under live fluoroscopic video guidance. According to the Speech Pathologist there was laryngeal penetrations wi th all ingested material. Aspiration was seen with thin and nectar thick liquids. IMPRESSION: LARYNGEAL PENETRATION AND ASPIRATION DESCRIBED ABOVE.PLEASE SEE SPEECH PATHOLOGIST RE PORT FOR OTHER FINDINGS AND RECOMMENDATIONS. COMMENT: Quality ID 145: Final reports for procedures using fluoroscopy that document radiation exp osure indices, or exposure time and number of fluorographic images (if radiation exposure indices are not available) TECHNICAL DOCUMENTATION: JOB ID: [id number] [employer]- All Rights Reserved Reading location - IP/workstation name: [email or web address]
== END ==
LOC: RAD 07:07
PROVIDERS: ATTEND Internal Medicine
DX: R13.10 Dysphagia, unspecified (principal); C01 Malignant neoplasm of base of tongue; E11.9 Type 2 diabetes mellitus without complications; I10 Essential (primary) hypertension; Z87.891 Personal history of nicotine dependence; F32.9 Major depressive disorder, single episode, unspecified; E78.00 Pure hypercholesterolemia, unspecified; K21.9 Gastro-esophageal reflux disease without esophagitis; F41.9 Anxiety disorder, unspecified; I25.10 Atherosclerotic heart disease of native coronary artery without angina pectoris
CPT/HCPCS: 82565; 74230; 70491; 92611; G8996; G8997

== ENCOUNTER 2018-03-12 09:41 | Outpatient (CLI) | payer MEDICARE, MEDICAID ==
[2018-03-12] MEDS ORDERED: RINGERS SOLUTION,LACTATED 1,000 ML IV PRN (09:56)
[2018-03-12 10:25] VITALS: BP 110/49
== END 2018-03-12 14:08 | disposition home or self-care (01) ==
LOC: II 09:41 → 5TH 09:44 → II 14:08
PROVIDERS: ATTEND Radiology Radiation Oncology
PROC: 3E0437Z Introduction of Electrolytic and Water Balance Substance into Central Vein, Percutaneous Approach (ICD-10-PCS; principal; 2018-03-12)
DX: C77.0 Secondary and unspecified malignant neoplasm of lymph nodes of head, face and neck (principal); C13.8 Malignant neoplasm of overlapping sites of hypopharynx
CPT/HCPCS: 96360; 96361; 96374

== ENCOUNTER → 2018-07-20 | Outpatient (CLI) | payer MEDICARE, MEDICAID ==
--- NOTE | 2018-07-21 13:13 | RADIOLOGY REPORT (SQ) ---
EXAM DESCRIPTION: PET CT SKULL/THIGH COMPLETED DATE/TIME: 07/20/2018 9:43 pm REASON FOR STUDY: TONGUE CANCER C01 MALIGNANT NEOPLASM OF BASE OF TONGUE COMPARISON: PET-CT 11/10/2017 CT soft tissue neck 01/16/2018 RADIONUCLIDE AND DOSE: 12.3 mCi F18 FDG The route of agent administration: Intravenous FASTING BLOOD SUGAR: 178 mg/dl CONTRAST TYPE AND DOSE: No CT contrast given. TECHNIQUE: Blood glucose level was verified. Above dose of FDG was injected intravenously. 2-D seg mented attenuation correction images were obtained from the base of the skull to the midthighs. Nonc ontrast CT images were obtained for attenuation correction and fusion with emission images. CT image s were performed without oral or intravenous contrast and are not sensitive for parenchymal lesions. A series of overlapping emission PET images were obtained. Images reviewed and manipulated at [facility] work station by the radiologist. Images stored on PACS. LIMITATIONS: None. FINDINGS: HEAD AND NECK: No areas of abnormal metabolic activity in the soft tissues of the head and neck. CHEST: No areas of abnormal metabolic activity in the chest. ABDOMEN AND PELVIS: No areas of abnormal metabolic activity in the abdomen or pelvis. Expected physi ologic activity is present in the genitourinary system and bowel. PROXIMAL LOWER EXTREMITIES: No areas of abnormal metabolic activity in the soft tissues of the lower extremities. BONES: No abnormal metabolic activity in the visualized skeleton. ADDITIONAL CT FINDINGS: Atherosclerotic calcification carotid bifurcations, coronary artery from the abdominal aorta without aneurysm. Gastrostomy tube. Right permanent central line tip superior vena cava. OTHER: No other significant findings. IMPRESSION: No PET-CT evidence of recurrent head and neck cancer TECHNICAL DOCUMENTATION: JOB ID: [id number]- All Rights Reserved Reading location - IP/workstation name: [email or web address]
== END ==
LOC: RAD 15:00
PROVIDERS: ATTEND Internal Medicine
DX: C01 Malignant neoplasm of base of tongue (principal)
CPT/HCPCS: 78815; A9552

== ENCOUNTER 2018-08-07 11:00 | Outpatient (CLI) | payer MEDICARE, MEDICAID ==
[~2018-08-07 11:00] MED LIST changes: -ACETAMINOPHEN 325 MG TABLET PO PRN; -CEFAZOLIN 1 GM/D5W RTU 1 GM/50 ML RTUPB IV PRN; +FERUMOXYTOL 510 MG in NORMAL SALINE 100 ML IV PRN; -LIDOCAINE 0.5% INJ-PF (5 MG/ML) 50 ML SDV SUBCUT PRN; -NORMAL SALINE 1000 ML (RENAL PATIENTS) IV PRN; +NORMAL SALINE 250 ML IV PRN
[2018-08-07 11:22] VITALS: BP 115/43
== END 2018-08-07 12:18 | disposition home or self-care (01) ==
LOC: II 11:00 → 5TH 11:02 → II 12:18
PROVIDERS: ATTEND Internal Medicine
PROC: 3E043GC Introduction of Other Therapeutic Substance into Central Vein, Percutaneous Approach (ICD-10-PCS; principal; 2018-08-07)
DX: D50.9 Iron deficiency anemia, unspecified (principal); K90.9 Intestinal malabsorption, unspecified
CPT/HCPCS: 96367; Q0138; 96365

== ENCOUNTER 2018-08-14 10:54 | Outpatient (CLI) | payer MEDICARE, MEDICAID ==
[~2018-08-14 10:54] MED LIST changes: +FERUMOXYTOL (NON-ESRD) 510 MG/NS 100 ML IV PRN; -FERUMOXYTOL 510 MG in NORMAL SALINE 100 ML IV PRN
[2018-08-14 11:24] VITALS: BP 122/42
== END 2018-08-14 11:41 | disposition home or self-care (01) ==
LOC: II 10:54 → 5TH 11:00 → II 11:41
PROVIDERS: ATTEND Internal Medicine
PROC: 3E033GC Introduction of Other Therapeutic Substance into Peripheral Vein, Percutaneous Approach (ICD-10-PCS; principal; 2018-08-14)
DX: D50.9 Iron deficiency anemia, unspecified (principal); K90.9 Intestinal malabsorption, unspecified
CPT/HCPCS: 96365; Q0138

== ENCOUNTER → 2018-09-18 | Outpatient (CLI) | payer MEDICARE, MEDICAID ==
[2018-09-18 11:42] LABS: ABSOLUTE BASOPHILS # (AUTO) 0.1 10^3/uL (0.0-0.2); ABSOLUTE EOSINOPHILS # (AUTO) 0.2 10^3/uL (0.0-0.6); ABSOLUTE LYMPHOCYTES (AUTO) 1.1 10^3/uL (0.5-4.7); ABSOLUTE MONOCYTES (AUTO) 0.9 10^3/uL (0.1-1.4); ABSOLUTE NEUT (AUTO) 5.3 10^3/uL (1.7-8.2); BASOPHILS % (AUTO) 0.8 % (0-2); EOSINOPHILS % (AUTO) 3.2 % (0-6); HEMOGLOBIN 12.6 g/dL (13.5-17.0); LYMPHOCYTES % (AUTO) 14.2 % (13-45); MEAN CORPUSCULAR HEMOGLOBIN 31.2 pg (27.0-33.4); MEAN CORPUSCULAR HGB CONC 33.9 g/dL (32.0-36.0); MEAN CORPUSCULAR VOLUME 92 fl (80-97); MONOCYTES % (AUTO) 12.2 % (3-13); PLATELET COUNT 210 10^3/uL (150-450); RED BLOOD COUNT 4.03 10^6/uL (4.35-5.55); RED CELL DISTRIBUTION WIDTH 14.4 % (11.5-14.0); SEGMENTED NEUTROPHILS % (AUTO) 69.6 % (42-78); TOTAL CELLS COUNTED % (AUTO) 100 %; WHITE BLOOD COUNT 7.5 10^3/uL (4.0-10.5)
[2018-09-18 12:02] LABS: ALANINE AMINOTRANSFERASE 26 U/L (21-72); ALBUMIN 4.3 g/dL (3.5-5.0); ALKALINE PHOSPHATASE 95 U/L (38-126); ANION GAP 9 (5-19); ASPARTATE AMINO TRANSFERASE 22 U/L (17-59); BILIRUBIN,DIRECT 0.1 mg/dL (0.0-0.4); BILIRUBIN,TOTAL 0.8 mg/dL (0.2-1.3); BLOOD UREA NITROGEN 18 mg/dL (7-20); CARBON DIOXIDE 31 mmol/L (22-30); CHLORIDE 97 mmol/L (98-107); CHOLESTEROL 114.24 mg/dL (0-200); GLUCOSE 160 mg/dL (75-110); POTASSIUM 4.2 mmol/L (3.6-5.0); SODIUM 136.6 mmol/L (137-145); TOTAL PROTEIN 6.6 g/dL (6.3-8.2); TRIGLYCERIDES 75 mg/dL (<150)
[2018-09-18 12:13] LABS: DIRECT LDL 60 mg/dL (<100)
[2018-09-19 11:41] LABS: CREATININE URINE 103.3 mg/dL (Not Estab.); MICROALBUMIN URINE 12.8 ug/mL (Not Estab.)
== END ==
LOC: LAB 11:23
PROVIDERS: ATTEND Family Medicine Geriatric Medicine
DX: E11.8 Type 2 diabetes mellitus with unspecified complications (principal); E78.5 Hyperlipidemia, unspecified; I10 Essential (primary) hypertension; I25.10 Atherosclerotic heart disease of native coronary artery without angina pectoris
CPT/HCPCS: 36415; 80053; 80061; 82043; 82570; 83036; 84443; 85025

== ENCOUNTER → 2018-12-02 | Outpatient (CLI) | payer MEDICARE, MEDICAID ==
--- NOTE | 2018-12-02 09:25 | RADIOLOGY REPORT (SQ) ---
EXAM DESCRIPTION: CT SOFT TISSUE NECK WITH COMPLETED DATE/TIME: 12/02/2018 9:10 am REASON FOR STUDY: TONGUE CANCER C01 MALIGNANT NEOPLASM OF BASE OF TONGUE COMPARISON: PET-CT dated 07/20/2018, CT soft tissue neck dated 01/16/2018 TECHNIQUE: Post IV contrasted scanning from skull base through lung apices with review of bone, soft tissue and lung windows. Reconstructed coronal and sagittal MPR images reviewed. All images stored on PACS. All CT scanners at this facility use dose modulation, iterative reconstruction, and/or weight based d osing when appropriate to reduce radiation dose to as low as reasonably achievable (ALARA). [facility]: Dose Right [facility]: CareDose [facility]: Dose Right [facility]: Teradose 4D [facility]: Amura CONTRAST TYPE AND DOSE: 75 mL Omnipaque 300- low osmolar. RENAL FUNCTION: Creatinine 0.7 RADIATION DOSE: . LIMITATIONS: None. FINDINGS: SKULL BASE: Intact. MAJOR SALIVARY GLANDS: No solid or cystic masses. No inflammatory changes. LYMPHADENOPATHY: No adenopathy. MUCOSAL MASSES OR ASYMMETRY: Subtle asymmetry remains in the right hypopharyngeal space. This is unc hanged from recent PET-CT which showed no abnormal metabolic activity. LARYNX/CORDS: No abnormal findings. VASCULAR STRUCTURES: There is calcified plaque at the carotid bifurcations bilaterally but no hemodyn amically significant narrowing. LUNG APICES: Clear. BONES: Intact. THYROID: Normal size. No masses. PARANASAL SINUSES: Clear. OTHER: No other significant finding. IMPRESSION: No pathologic adenopathy. Mild asymmetry in the right hypopharyngeal spaces unchanged f rom prior PET. No evidence of recurrent or residual disease. TECHNICAL DOCUMENTATION: JOB ID: [id number] Quality ID # 436: Final reports with documentation of one or more dose reduction techniques (e.g., Au tomated exposure control, adjustment of the mA and/or kV according to patient size, use of iterative reconstruction technique) 2010 [employer]- All Rights Reserved Reading location - IP/workstation name: [email or web address]
== END ==
LOC: RAD 08:23
PROVIDERS: ATTEND Physician Assistant Medical
DX: C01 Malignant neoplasm of base of tongue (principal)
CPT/HCPCS: 70491; 82565

== ENCOUNTER → 2018-12-23 | Outpatient (CLI) | payer MEDICARE, MEDICAID ==
[2018-12-23 10:55] LABS: ABSOLUTE BASOPHILS # (AUTO) 0.1 10^3/uL (0.0-0.2); ABSOLUTE EOSINOPHILS # (AUTO) 0.1 10^3/uL (0.0-0.6); ABSOLUTE LYMPHOCYTES (AUTO) 0.9 10^3/uL (0.5-4.7); ABSOLUTE MONOCYTES (AUTO) 0.6 10^3/uL (0.1-1.4); ABSOLUTE NEUT (AUTO) 4.1 10^3/uL (1.7-8.2); EOSINOPHILS % (AUTO) 2.2 % (0-6); HEMATOCRIT 39.4 % (37.9-51.0); HEMOGLOBIN 13.5 g/dL (13.5-17.0); LYMPHOCYTES % (AUTO) 14.7 % (13-45); MEAN CORPUSCULAR HEMOGLOBIN 31.8 pg (27.0-33.4); MEAN CORPUSCULAR HGB CONC 34.3 g/dL (32.0-36.0); MEAN CORPUSCULAR VOLUME 93 fl (80-97); MONOCYTES % (AUTO) 11.1 % (3-13); PLATELET COUNT 179 10^3/uL (150-450); RED BLOOD COUNT 4.25 10^6/uL (4.35-5.55); RED CELL DISTRIBUTION WIDTH 13.5 % (11.5-14.0); TOTAL CELLS COUNTED % (AUTO) 100 %; WHITE BLOOD COUNT 5.8 10^3/uL (4.0-10.5)
[2018-12-23 12:07] LABS: ANION GAP 9 (5-19); BLOOD UREA NITROGEN 13 mg/dL (7-20); CALCIUM 10.8 mg/dL (8.4-10.2); CARBON DIOXIDE 30 mmol/L (22-30); CHLORIDE 99 mmol/L (98-107); GLUCOSE 139 mg/dL (75-110); SODIUM 137.7 mmol/L (137-145)
== END ==
LOC: LAB 10:39
PROVIDERS: ATTEND Family Medicine Geriatric Medicine
DX: D64.9 Anemia, unspecified (principal); E11.65 Type 2 diabetes mellitus with hyperglycemia; E87.1 Hypo-osmolality and hyponatremia; Z79.899 Other long term (current) drug therapy
CPT/HCPCS: 36415; 80048; 85025

== ENCOUNTER → 2019-01-13 | Outpatient (CLI) | payer MEDICARE, MEDICAID ==
--- NOTE | 2019-01-13 09:26 | ST Modified Barium Swallow ---
Recommendation - Recommendations Recommendations: Recommend nectar thick liquids and soft solids. Strategies to include alternating bites and sips, and throat clear/cough and reswallow. With strategies and modified diet, patient is still at risk of aspiration of residuals. Recommend short course of treatment to further train patient on strategies and diet recommendations. Medical Diagnoses - Medical Diagnoses Medical Diagnosis Description & ICD-10 Code(s): dysphagia R13.10 Other Medical Diagnoses/Co-Morbidities: diabetes, high blood pressure, history of smoking, depression, COPD, high cholesterol, reflux, anxiety, coronary artery disease, stoke, hypopharynx lesion ST Modified Barium Swallow - General Date: 01/13/19 Referring Physician: Dr. Gonzales Risks/Precautions: Aspiration - History History obtained from: Patient, Other - EMR -: Medical - Patient arrived with a friend, participated independently in study. Amor was used as patient is guatemalan speaking. The patient has a history of base of tongue cancer, also impacting epiglottis and right vocal fold. The patient has had this test before, approximately 1 year ago (01/16/18), however, he did not recall having it done before. At that study, honey thick liquids and soft solids were recommended. Patient remained at risk of aspiration on that diet. Since the last test, he reports having his feeding tube out, but could not tell exactly when. He reports no new surgeries since the last study, but has had radiation treatment. Medications: Patient unable to give medication list Allergies: no known allergies - Functional Status Prior Functional Status: INDEPENDENT: feeding Current Functional Limitations: feeding - Subjective Patient/caregiver goal(s): safe swallow Cognitive-Linguistic Function: Functional Speech Intelligibility: WNL Current Nutritional Means: PO Current PO diet: Soft - Patient reports that he will drink regular liquids with food in his mouth so that they mix together. Rarely drinks liquids by themselves. Current symptoms: Weight loss, Coughing Pain: Patient reports, 0/5 - no pain at the time of the evaluation, but he does report some pain during the swallow, which is improving - Objective Assessment: Upright, Left Lateral - Food Trials Used Food trials used: Thin liquids, [place] thick liquids, Pureed, Regular The patient: Was Able to Self Feed - Oral-Motor Skills Dentition: Partial Velo-pharyngeal function: Unremarkable - Assessment Oral prep: Normal Labial closure: Adequate Leakage: None Mastication: Adequate Lingual Movement: Normal Oral stage: Normal for this Procedure - Pharyngeal Stage Initiation of Pharyngeal Stage Reflex: Normal Decreased laryngeal elevation: Yes - mild Reduced Velopharyngeal Closure: no Reduced pressure generation: Yes reduced tongue-based retraction: No Pre-swallow pooling in valleculae: None Pre-Swallow pooling in pyriforms: None Reduced epiglottic excursion: Yes - mild to moderate Multiple Swallows with: Cleared w/ Liquid Assist Post-swallow residulas vallecular: Significant - with laurence cracker Post-Swallow residuals in pyriforms: Mild - Fall Risk Assessment Medications/Conditions that increase fall risks include: Antidepressants, sedatives, anti-arrhythmic, diuretic, benzodiazipenes, neuroleptics. BP regulation problems, cardiac problems, balance or gait deficits, neurological problems. Fall Risk Actions Taken: No action needed - Behavioral Observations During evaluation process patient: was pleasant, was cooperative - Treatment / Educational Needs: Treatment/Education Needs: Treatment consisted of patient education on the role of the Speech Pathologist. Patient's plan of care and golas were communicated as well as scheduling and attendance policies. Recommendations for initial home program were shared. Patient demonstrated understanding and verbalized agreement. - Impression/Summary Laryngeal Penetration: Yes, during swallow, after swallow - from residuals Consistency: Thin, [place], Pudding Tracheal Aspiration: yes, deep, delayed cough, during swallow - with thin liquids, after swallow - from residuals of other textures Productive cough: Yes - cough was cued by therapist Effective Clearing: yes Effective compensatory strategies: throat clear & reswallow Patient presents with: Pharyngeal stage dysph., Mild-Moderate Risk of Aspiration: Moderate Risk of nutritional compromise: Moderate Risk due to: Aspiration risk due to pharyngeal residue and poor sensation. Evaluation and Findings: Patient demonstrated moderate pharyngeal phase dysphagia. Patient was seen to aspirate thin liquids during the swallow with regularity. Patient had delayed cough reflex which was unable to clear aspirated thin liquids. Penetration without aspiration was seen with nectar thick liquids, therapist had to cue patient to cough to clear penetrated material. With solids, residue seen in valleculae and on posterior pharyngeal wall. This required liquid wash to clear. Residue was seen to also penetrate laryngeal vestibule, was able to clear with cued cough. - Recommendations Solid diet recommendations: Mechanical Soft Liquid Diet Modification: [place]-Thick Strict aspiration precautions: Yes Dysphagia therapy with DOCKMASTER: dysphagia therapy Recommended techniques: Fully Upright During Meal, Small Bites and Sips, Alternate Bites/Sips Information, Precautions and Recommendations: Patient (Written), Patient (Verbal) Other recommendations: throat clear and re-swallow - Time Total Time: 30 - Plan of Care Strategies to optimize patient understanding include:: ongoing assessment of educational needs, implementation of educational strategies, and re-education. - - -: Thank you for the opportunity to work with this patient and his/her family. Should you have any questions about this patient's plan or progress, I can be reached at [phone]. [facility]. Impairment Category - Swallowing Current G8996: CK 40-59% Impaired Goal G8997: CJ 20-39% Impaired
--- NOTE | 2019-01-13 10:39 | RADIOLOGY REPORT (SQ) ---
EXAM DESCRIPTION: COOKIE SWALLOW COMPLETED DATE/TIME: 01/13/2019 9:00 am REASON FOR STUDY: MALIGNANT NEOPLASM OF HEAD, FACE AND NECK (C76.0) R13.10 DYSPHAGIA, UNSPECIFIED C 76.0 MALIGNANT NEOPLASM OF HEAD, FACE AND NECK COMPARISON: None. TECHNIQUE: Videofluoroscopic swallowing examination was performed in conjunction with speech patholo gy. Videofluoroscopic imaging was obtained and reviewed and these are the findings: RADIATION DOSE: Fluoro time 3.6 minutes 1 images saved to PACS. LIMITATIONS: None FINDINGS: The patient was brought into the fluoro room and placed upright on a modified barium swall ow chair. The patient was then given multiple consistencies mixed with barium to swallow under live fluoroscopic video guidance. According to the Speech Pathologist there was penetration and eventual aspiration seen with thin barium. Laryngeal penetration and aspiration was also seen from residuals. Please refer to the speech pathology report for further details. IMPRESSION: LARYNGEAL PENETRATION WITH EVENTUAL TRACHEAL ASPIRATION SEEN WITH THIN BARIUM AND WITH R ESIDUALS. . PLEASE SEE SPEECH PATHOLOGIST REPORT FOR OTHER FINDINGS AND RECOMMENDATIONS. COMMENT: None Quality ID 145: Final reports for procedures using fluoroscopy that document radiation exposure brandt yumiko, or exposure time and number of fluorographic images (if radiation exposure indices are not avail able) TECHNICAL DOCUMENTATION: JOB ID: [id number] [employer]- All Rights Reserved Reading location - IP/workstation name: [email or web address]
== END ==
LOC: RAD 08:08
PROVIDERS: ATTEND Otolaryngology
DX: C76.0 Malignant neoplasm of head, face and neck (principal); M54.2 Cervicalgia; R13.10 Dysphagia, unspecified; E11.9 Type 2 diabetes mellitus without complications; I10 Essential (primary) hypertension; Z87.891 Personal history of nicotine dependence; J44.9 Chronic obstructive pulmonary disease, unspecified; I25.10 Atherosclerotic heart disease of native coronary artery without angina pectoris
CPT/HCPCS: 74230

== ENCOUNTER → 2019-06-25 | Outpatient (CLI) | payer MEDICARE, MEDICAID ==
[2019-06-25 11:55] LABS: ABSOLUTE EOSINOPHILS # (AUTO) 0.2 10^3/uL (0.0-0.6); ABSOLUTE LYMPHOCYTES (AUTO) 1.3 10^3/uL (0.5-4.7); ABSOLUTE MONOCYTES (AUTO) 0.7 10^3/uL (0.1-1.4); ABSOLUTE NEUT (AUTO) 4.1 10^3/uL (1.7-8.2); BASOPHILS % (AUTO) 0.4 % (0-2); HEMATOCRIT 35.8 % (37.9-51.0); HEMOGLOBIN 12.2 g/dL (13.5-17.0); LYMPHOCYTES % (AUTO) 20.6 % (13-45); MEAN CORPUSCULAR HEMOGLOBIN 30.7 pg (27.0-33.4); MEAN CORPUSCULAR HGB CONC 34.2 g/dL (32.0-36.0); MEAN CORPUSCULAR VOLUME 90 fl (80-97); MONOCYTES % (AUTO) 10.7 % (3-13); PLATELET COUNT 175 10^3/uL (150-450); RED BLOOD COUNT 3.98 10^6/uL (4.35-5.55); RED CELL DISTRIBUTION WIDTH 13.4 % (11.5-14.0); SEGMENTED NEUTROPHILS % (AUTO) 65.3 % (42-78); TOTAL CELLS COUNTED % (AUTO) 100 %; WHITE BLOOD COUNT 6.2 10^3/uL (4.0-10.5)
[2019-06-25 12:12] LABS: CHOLESTEROL 196.22 mg/dL (0-200); TRIGLYCERIDES 166 mg/dL (<150)
[2019-06-25 12:23] LABS: DIRECT LDL 121 mg/dL (<100)
[2019-06-25 12:27] LABS: VLDL CHOLESTEROL 33.2 mg/dL (10-31)
== END ==
LOC: LAB 11:32
PROVIDERS: ATTEND Family Medicine Geriatric Medicine
DX: D64.9 Anemia, unspecified (principal); E78.5 Hyperlipidemia, unspecified; Z79.899 Other long term (current) drug therapy
CPT/HCPCS: 36415; 80061; 84460; 85025

== ENCOUNTER → 2019-08-19 | Outpatient (CLI) | payer MEDICARE, MEDICAID ==
[2019-08-19 12:11] LABS: ABSOLUTE BASOPHILS # (AUTO) 0.1 10^3/uL (0.0-0.2); ABSOLUTE EOSINOPHILS # (AUTO) 0.3 10^3/uL (0.0-0.6); ABSOLUTE MONOCYTES (AUTO) 0.8 10^3/uL (0.1-1.4); ABSOLUTE NEUT (AUTO) 5.7 10^3/uL (1.7-8.2); BASOPHILS % (AUTO) 1.1 % (0-2); EOSINOPHILS % (AUTO) 3.6 % (0-6); HEMATOCRIT 38.2 % (37.9-51.0); LYMPHOCYTES % (AUTO) 12.6 % (13-45); MEAN CORPUSCULAR HEMOGLOBIN 30.9 pg (27.0-33.4); MEAN CORPUSCULAR HGB CONC 34.1 g/dL (32.0-36.0); MEAN CORPUSCULAR VOLUME 91 fl (80-97); MONOCYTES % (AUTO) 10.2 % (3-13); PLATELET COUNT 173 10^3/uL (150-450); RED BLOOD COUNT 4.21 10^6/uL (4.35-5.55); RED CELL DISTRIBUTION WIDTH 13.7 % (11.5-14.0); SEGMENTED NEUTROPHILS % (AUTO) 72.5 % (42-78); TOTAL CELLS COUNTED % (AUTO) 100 %; WHITE BLOOD COUNT 7.9 10^3/uL (4.0-10.5)
[2019-08-19 12:29] LABS: BLOOD UREA NITROGEN 11 mg/dL (7-20); CALCIUM 10.1 mg/dL (8.4-10.2); GLUCOSE 107 mg/dL (75-110)
[2019-08-19 12:30] LABS: ANION GAP 14 (5-19); CARBON DIOXIDE 27 mmol/L (22-30); CHLORIDE 96 mmol/L (98-107); CHOLESTEROL 114.36 mg/dL (0-200); POTASSIUM 4.6 mmol/L (3.6-5.0); TRIGLYCERIDES 71 mg/dL (<150)
[2019-08-19 12:40] LABS: DIRECT LDL 62 mg/dL (<100)
== END ==
LOC: LAB 11:52
PROVIDERS: ATTEND Family Medicine Geriatric Medicine
DX: E83.52 Hypercalcemia (principal); E78.5 Hyperlipidemia, unspecified; I10 Essential (primary) hypertension; E11.21 Type 2 diabetes mellitus with diabetic nephropathy; Z79.899 Other long term (current) drug therapy
CPT/HCPCS: 36415; 80048; 80061; 83970; 84460; 85025

== ENCOUNTER → 2019-11-18 | Outpatient (CLI) | payer MEDICARE, MEDICAID ==
[2019-11-18 11:17] LABS: ABSOLUTE BASOPHILS # (AUTO) 0.1 10^3/uL (0.0-0.2); ABSOLUTE EOSINOPHILS # (AUTO) 0.3 10^3/uL (0.0-0.6); ABSOLUTE LYMPHOCYTES (AUTO) 1.7 10^3/uL (0.5-4.7); ABSOLUTE MONOCYTES (AUTO) 0.6 10^3/uL (0.1-1.4); BASOPHILS % (AUTO) 1.1 % (0-2); EOSINOPHILS % (AUTO) 5.1 % (0-6); HEMATOCRIT 36.8 % (37.9-51.0); HEMOGLOBIN 12.9 g/dL (13.5-17.0); LYMPHOCYTES % (AUTO) 29.6 % (13-45); MEAN CORPUSCULAR HEMOGLOBIN 31.6 pg (27.0-33.4); MEAN CORPUSCULAR VOLUME 90 fl (80-97); MONOCYTES % (AUTO) 11.2 % (3-13); PLATELET COUNT 194 10^3/uL (150-450); RED BLOOD COUNT 4.08 10^6/uL (4.35-5.55); RED CELL DISTRIBUTION WIDTH 13.6 % (11.5-14.0); TOTAL CELLS COUNTED % (AUTO) 100 %; WHITE BLOOD COUNT 5.7 10^3/uL (4.0-10.5)
[2019-11-19 12:36] LABS: CREATININE URINE 100.9 mg/dL (Not Estab.); MICROALBUMIN URINE 25.6 ug/mL (Not Estab.)
== END ==
LOC: LAB 10:57
PROVIDERS: ATTEND Family Medicine Geriatric Medicine
DX: E11.8 Type 2 diabetes mellitus with unspecified complications (principal); J30.9 Allergic rhinitis, unspecified; Z79.899 Other long term (current) drug therapy
CPT/HCPCS: 36415; 82043; 82570; 83036; 85025

== ENCOUNTER 2020-02-12 10:37 | Emergency (ER) | payer MEDICARE, MEDICAID ==
[2020-02-12 11:10] VITALS: BP 147/70
[2020-02-12 12:51] LABS: ABSOLUTE EOSINOPHILS # (AUTO) 0.3 10^3/uL (0.0-0.6); ABSOLUTE LYMPHOCYTES (AUTO) 1.2 10^3/uL (0.5-4.7); ABSOLUTE MONOCYTES (AUTO) 0.6 10^3/uL (0.1-1.4); BASOPHILS % (AUTO) 0.6 % (0-2); EOSINOPHILS % (AUTO) 4.3 % (0-6); HEMATOCRIT 37.3 % (37.9-51.0); HEMOGLOBIN 12.6 g/dL (13.5-17.0); LYMPHOCYTES % (AUTO) 19.2 % (13-45); MEAN CORPUSCULAR HEMOGLOBIN 30.6 pg (27.0-33.4); MEAN CORPUSCULAR HGB CONC 33.8 g/dL (32.0-36.0); MEAN CORPUSCULAR VOLUME 91 fl (80-97); MONOCYTES % (AUTO) 10.5 % (3-13); PLATELET COUNT 179 10^3/uL (150-450); RED BLOOD COUNT 4.12 10^6/uL (4.35-5.55); RED CELL DISTRIBUTION WIDTH 14.4 % (11.5-14.0); SEGMENTED NEUTROPHILS % (AUTO) 65.4 % (42-78); TOTAL CELLS COUNTED % (AUTO) 100 %; WHITE BLOOD COUNT 6.1 10^3/uL (4.0-10.5)
--- NOTE | 2020-02-12 13:04 | ER Document Report ---
ED General - General Chief Complaint: General Weakness Stated Complaint: WEAKNESS Time Seen by Provider: 02/12/20 12:29 Primary Care Provider: TATA ORTEZ MD [Primary Care Provider] - Follow up as needed Mode of Arrival: Medic Information source: Patient Notes: 74-year-old man brought to the emergency department with history of weakness and feeling poorly over the past few days. He was taking medications for anxiety, however he has run out of medicines and has complaints of weakness and feeling nervous in the emergency department today. Son notes that he is eating well, having normal bowel movements, no fever, no cough and no chest pain. Past medical history of diabetes mellitus, hyperlipidemia, throat cancer. He has had surgical resection of the cancer and chemotherapy and radiation approximately 3 years ago. TRAVEL OUTSIDE OF THE [place] IN LAST 30 DAYS: No - Related Data Allergies/Adverse Reactions: No Known Allergies Allergy (Verified 10/29/17 09:53) Past Medical History - Social History Smoking Status: Former Smoker Family History: Reviewed & Not Pertinent - Past Medical History Cardiac Medical History: Reports: Hx Hypercholesterolemia, Hx Hypertension Denies: Hx Coronary Artery Disease, Hx Heart Attack Pulmonary Medical History: Denies: Hx Asthma, Hx Bronchitis, Hx COPD, Hx Pneumonia, Hx Tuberculosis Neurological Medical History: Denies: Hx Cerebrovascular Accident, Hx Seizures Endocrine Medical History: Reports: Hx Diabetes Mellitus Type 2 GI Medical History: Reports: Hx Ulcer Musculoskeletal Medical History: Reports Hx Arthritis - BROOKE SHOULDERS/HANDS/KNEES Past Surgical History: Denies: Hx Pacemaker - Immunizations Hx Diphtheria, Pertussis, Tetanus Vaccination: No Hx Pneumococcal Vaccination: 07/22/12 Review of Systems - Review of Systems Notes: Constitutional: + Fatigue, + dizziness HENT: Negative for sore throat. Eyes: Negative for visual changes. Cardiovascular: Negative for chest pain. Respiratory: Negative for shortness of breath. Gastrointestinal: Negative for abdominal pain, vomiting or diarrhea. Genitourinary: Negative for dysuria. Musculoskeletal: Negative for back pain. Skin: Negative for rash. Neurological: Negative for headaches, weakness or numbness. 10 point ROS negative except as marked above and in HPI. Physical Exam - Vital signs Vitals: Temp 98.5 F 02/12/20 10:37 - Notes Notes: PHYSICAL EXAMINATION: Physical Exam: General: Medically ill 74-year-old man in no acute distress HEENT: NC/AT, pupils equal round and reactive to light, MM moist,nares clear, oropharynx clear, airway patent Neck: supple, no adenopathy, no masses. Good range of motion Lungs: clear, no wheezing, no rales no rhonchi CVS: Regular rate and rhythm no murmur gallop or rub Abdomen: Soft, active, nontender, no masses, no hepatosplenomegaly Ext: No edema, clubbing or cyanosis. Neuro: Alert and responsive, moving all 4 extremities on command, cranial nerves intact, no focal findings Skin: Intact no open lesions, no rash Course - Re-evaluation Re-evalutation: 02/12/20 17:58 74-year-old man with increased fatigue, findings on a chest x-ray suggestive of a possible pneumonia. I discussed this with the son, will cover with antibiotics and follow-up with outpatient provider. 02/12/20 17:59 - Vital Signs Vital signs: Temp Pulse Resp BP Pulse Ox 97.9 F 57 L 18 147/70 H 92 02/12/20 18:29 02/12/20 11:09 02/12/20 11:09 02/12/20 11:09 02/12/20 11:09 - Laboratory Result Diagrams: 02/12/20 12:32 02/12/20 12:32 Laboratory results interpreted by me: 02/12/20 02/12/20 02/12/20 12:12 12:32 12:32 RBC 4.12 L Hgb 12.6 L Hct 37.3 L RDW 14.4 H Sodium 134.6 L Glucose 163 H POC Glucose 161 H Discharge - Discharge Clinical Impression: Diabetes mellitus type 2 in nonobese Pneumonia Qualifiers: Pneumonia type: due to unspecified organism Laterality: left Lung location: lower lobe of lung Qualified Code(s): J18.9 - Pneumonia, unspecified organism Fatigue Qualifiers: Fatigue type: unspecified Qualified Code(s): R53.83 - Other fatigue Condition: Good Disposition: HOME, SELF-CARE Instructions: Pneumonia ([facility]) Additional Instructions: You were seen in the emergency department today for weakness and fatigue, chest x-ray suggestive of a possible pneumonia. The oxygen levels are fine and the white blood cell count is normal. You are being given oral antibiotics to take for the next 10 days. Please follow-up with your primary care doctor for recheck on Sung. If the symptoms are worsening or if you have other concerns she may return to the emergency department for further evaluation and treatment. HOME CARE INSTRUCTIONS & INFORMATION: Thank you for choosing us for your [facility] needs. We hope you're satisfied with the care you received. After you leave, you must properly care for your problem and, at the same time, observe its progress. Any condition can change. Some illnesses can change rapidly over hours or days. If your condition worsens, return to the Emergency Department or see your physician promptly. ABOUT YOUR X-RAYS AND EKG'S: If you had an EKG or X-rays taken, they have been read by the Emergency Physician. The X-rays and EKG's will also be read by a Radiologist or Payroll Lead within 24 hours. If discrepancies are noted, you will be notified by telephone. Please be certain the ED has a correct telephone number & address where you can be reached. Also, realize that some fractures or abnormalities do not show up on initial X-rays. If your symptoms continue, see your physician. ABOUT YOUR LABORATORY TEST: If you had laboratory tests, the results have been reviewed by the Emergency Physician. Some test results (for example cultures) may not be available for several days. You will be contacted if any test result shows you need additional treatment. Please be certain the ED has a correct telephone number and address where you can be reached. ABOUT YOUR MEDICATIONS: You will receive instructions on how to take your medicine on the prescription label you receive. Additional information may be provided by the Pharmacy. If you have questions afterwards, call the ED for clarification or further instructions. Some prescribed medications may cause drowsiness. Do not perform tasks such as driving a car or operating machinery without consulting your Pharmacist. If you feel you need a refill of pain medication, your condition will need re-evaluation. Please do not call for a refill of any medication. ABOUT YOUR SIGNATURE: Signature of this document acknowledges to followin. Understanding that you received emergency treatment and that you may be released before al medical problems are known or treated. Please be certain the ED has a correct phone number & address where you can be reached. 2. Acknowledgement that you will arrange for follow-up care as recommended. 3. Authorization for the Emergency Physician to provide information to your follow-up Physician in order to maximize your care. AT ANY TIME, IF YOUR SYMPTOMS CHANGE SIGNIFICANTLY OR WORSEN OR YOU DEVELOP NEW SYMPTOMS, RETURN TO THE EMERGENCY DEPARTMENT IMMEDIATELY FOR RE-EVALUATION. OUR GOAL IS TO PROVIDE EXCELLENT MEDICAL CARE! WE HOPE THAT WE HAVE MET YOUR EXPECTATIONS DURING YOUR EMERGENCY DEPARTMENT VISIT AND THAT YOU FEEL YOU HAVE RECEIVED EXCELLENT CARE! Prescriptions: Cefdinir 300 mg PO BID #20 capsule Referrals: TATA ORTEZ MD [Primary Care Provider] - Follow up as needed
--- NOTE | 2020-02-12 13:05 | RADIOLOGY REPORT (SQ) ---
EXAM DESCRIPTION: CHEST SINGLE VIEW IMAGES COMPLETED DATE/TIME: 02/12/2020 12:49 pm REASON FOR STUDY: cough COMPARISON: PA and lateral views of the chest from 09/05/2015. EXAM PARAMETERS: NUMBER OF VIEWS: One view. TECHNIQUE: An AP view of the chest was obtained. RADIATION DOSE: NA LIMITATIONS: None. FINDINGS: LUNGS AND PLEURA: Dense opacity in the inferior aspect of the left hemithorax that obscure s the contour of the hemidiaphragm and blunts the left lateral costophrenic sulci. There is no pneum othorax. MEDIASTINUM AND HILAR STRUCTURES: No mediastinal or hilar contour abnormality. HEART AND VASCULAR STRUCTURES: The cardiac silhouette is accentuated due to AP technique. BONES: No acute findings. HARDWARE: None in the chest. OTHER: No other finding. IMPRESSION: Opacity in the inferior aspect of the left hemithorax that could represent a combination of pleural fluid, atelectasis and or pneumonia (in the proper clinical setting). TECHNICAL DOCUMENTATION: JOB ID: [id number] 2010 [employer]- All Rights Reserved Reading location - IP/workstation name: [email or web address]
[2020-02-12 13:14] LABS: ALBUMIN 3.9 g/dL (3.5-5.0); ALKALINE PHOSPHATASE 67 U/L (38-126); ANION GAP 7 (5-19); ASPARTATE AMINO TRANSFERASE 25 U/L (17-59); BILIRUBIN,TOTAL 0.5 mg/dL (0.2-1.3); BLOOD UREA NITROGEN 10 mg/dL (7-20); CALCIUM 9.3 mg/dL (8.4-10.2); CARBON DIOXIDE 28 mmol/L (22-30); CHLORIDE 100 mmol/L (98-107); GLUCOSE 163 mg/dL (75-110); POTASSIUM 4.1 mmol/L (3.6-5.0); TOTAL PROTEIN 6.4 g/dL (6.3-8.2)
[2020-02-12] MEDS ORDERED: NORMAL SALINE 1000 ML 1,000 ML IV ONE (14:08)
[2020-02-12 15:17] LABS: APPEARANCE,URINE CLEAR; BILIRUBIN,URINE NEGATIVE (NEGATIVE); COLOR,URINE STRAW; GLUCOSE, URINE NEGATIVE (NEGATIVE); KETONES,URINE NEGATIVE (NEGATIVE); PROTEIN,URINE NEGATIVE (NEGATIVE); URINE SPECIFIC GRAVITY 1.006; UROBILINOGEN,URINE NEGATIVE mg/dL (<2.0)
== END 2020-02-12 18:29 | disposition home or self-care (01) ==
LOC: ER 10:37
DX: J18.9 Pneumonia, unspecified organism (principal); E11.9 Type 2 diabetes mellitus without complications; R53.83 Other fatigue; R53.1 Weakness; R45.0 Nervousness; Z92.3 Personal history of irradiation; Z92.21 Personal history of antineoplastic chemotherapy; Z87.891 Personal history of nicotine dependence
CPT/HCPCS: 99285; 36415; 82962; 85025; 80053; 81001; 71045; J7030

== ENCOUNTER 2020-02-13 21:27 | Emergency (ER) | payer MEDICARE, MEDICAID ==
--- NOTE | 2020-02-13 22:09 | ER Document Report ---
ED General - General Stated Complaint: DIFFICULT BREATHING/CHEST PAIN/HEADACHE Time Seen by Provider: 02/13/20 21:56 Primary Care Provider: TATA ORTEZ MD [Primary Care Provider] - 02/15/20 Notes: Patient is a 74-year-old man who comes emergency department for chief complaint of cough, body aches "all over" including pain across the chest and in all extremities. He states he has been feeling weak,has intermittent nausea. He does deny headache. He is able to eat without difficulty. Patient was evaluated in the emergency department yesterday and diagnosed with possible pneumonia reportedly, started on Ceftin ear. Patient states coughing worsened and he did not feel any better so he came back in for evaluation. Patient does not smoke, denies history of asthma or COPD. Past medical history of diabetes, hyperlipidemia, throat cancer (had surgical resection chemo therapy, and radiation around 3 years ago and is currently on no intervention for this). Patient speaks poor Cameroonian, Martti was used for interpretation and son filled in over the phone. Son states that patient has been complaining of the same symptoms for a while, he states that if patient does not receive Ativan he starts complaining of a variety of symptoms and feeling anxious and if he still does not receive this he comes in for emergency evaluation. He is prescribed this intermittently by primary care reportedly, son states that he is taking these as needed. Son denies patient overdosing on this but states he currently does not have any. TRAVEL OUTSIDE OF THE [place] IN LAST 30 DAYS: No - Related Data Allergies/Adverse Reactions: No Known Allergies Allergy (Verified 10/29/17 09:53) Past Medical History - General Information source: Patient, Relative - Son - Social History Smoking Status: Never Smoker Frequency of alcohol use: None Drug Abuse: None Lives with: Family Family History: Reviewed & Not Pertinent - Past Medical History Cardiac Medical History: Reports: Hx Hypercholesterolemia, Hx Hypertension Denies: Hx Coronary Artery Disease, Hx Heart Attack Pulmonary Medical History: Denies: Hx Asthma, Hx Bronchitis, Hx COPD, Hx Pneumonia, Hx Tuberculosis Neurological Medical History: Denies: Hx Cerebrovascular Accident, Hx Seizures Endocrine Medical History: Reports: Hx Diabetes Mellitus Type 2 GI Medical History: Reports: Hx Ulcer Musculoskeletal Medical History: Reports Hx Arthritis - BROOKE S HOULDERS/HANDS/KNEES Past Surgical History: Denies: Hx Pacemaker - Immunizations Hx Diphtheria, Pertussis, Tetanus Vaccination: No Hx Pneumococcal Vaccination: 07/22/12 Review of Systems - Review of Systems Constitutional: See HPI EENT: No symptoms reported Cardiovascular: See HPI Respiratory: See HPI Gastrointestinal: No symptoms reported Genitourinary: No symptoms reported Male Genitourinary: No symptoms reported Musculoskeletal: No symptoms reported Skin: No symptoms reported Hematologic/Lymphatic: No symptoms reported Neurological/Psychological: See HPI Physical Exam - Vital signs Vitals: Resp Pulse Ox 9 L 96 02/13/20 22:02 02/13/20 22:02 - Notes Notes: GENERAL: Alert, interacts well. No acute distress. HEAD: Normocephalic, atraumatic. EYES: Pupils equal, round, and reactive to light. Extraocular movements intact. ENT: Oral mucosa moist, tongue midline. Oropharynx unremarkable. Airway patent. NECK: Full range of motion. Supple. Trachea midline. No lymphadenopathy. LUNGS: Clear to auscultation bilaterally, no wheezes, rales, or rhonchi. No respiratory distress. Non-tender chest wall. HEART: Regular rate and rhythm. No murmur ABDOMEN: Soft, non-tender. Non-distended. EXTREMITIES: Moves all 4 extremities spontaneously. No edema, normal radial and dorsalis pedis pulses bilaterally. No cyanosis. BACK: no cervical, thoracic, lumbar midline tenderness. No saddle anesthesia, normal distal neurovascular exam. Moves all extremities in full range of motion. NEUROLOGICAL: Alert and oriented x3. Normal speech. Cranial nerves II through XII grossly intact. Strength 5/5 in all extremities. PSYCH: Patient smiling and conversational loss we speak about his symptoms, then he becomes agitated and visibly anxious SKIN: Warm, dry, normal turgor. No rashes or lesions noted. Course - Re-evaluation Re-evalutation: CBC nonspecific, chemistry nonspecific, troponin is not elevated, repeat troponin is slightly higher but still not elevated, patient is denying chest pain on my evaluations, patient has been having generalized body aches and general symptoms for a while. Patient does get extremely anxious when talking about his symptoms, he becomes visibly agitated and becomes briefly tachycardic. This resolves after he stops talking about his symptoms. Patient was tested for coronavirus, chest x-ray unremarkable without significant change from yesterday, BNP borderline. Patient was complaining of nausea but after Zofran on reevaluation patient smiling, states he feels great, is asking about going home. I did use Pamela interpretation for conversation with the patient. Son does speak good Cameroonian. Son was spoken to again. I discussed details. He states he will be happy to bulk picker the patient and take him home, he states that patient is not suicidal, he is not worried about patient's safety, however he states none of the symptoms are new. I did offer to give patient some Ativan for the weekend and beyond to tide him over until he is seen by his primary care and given additional management for as needed anxiety, son states he was started on daily medication for this and takes Ativan as needed in addition to this. He states appreciation on patient being given a prescription, I did discuss return precautions with him in detail. He states understanding and agreement. Patient asymptomatic, states gratefulness, well-appearing at time of discharge. - Vital Signs Vital signs: Temp Pulse Resp BP Pulse Ox 98.2 F 94 18 142/75 H 97 02/14/20 04:17 02/14/20 04:17 02/14/20 04:17 02/14/20 04:17 02/14/20 04:17 - Laboratory Result Diagrams: 02/13/20 22:21 02/13/20 22:21 Laboratory results interpreted by me: 02/13/20 02/13/20 02/13/20 22:21 22:21 22:21 RBC 4.07 L Hgb 12.5 L Hct 36.8 L RDW 14.3 H Sodium 135.1 L Glucose 129 H NT-Pro-B Natriuret Pep 522 H - EKG Interpretation by Me Additional EKG results interpreted by me: EKG shows sinus rhythm at a rate of 58. First-degree AV block with UT interval of 228. Left bundle branch block is present. However this is present on previous EKG. No significant change from prior. Discharge - Discharge Clinical Impression: Cough, Nausea, Anxiety Chest pain Qualifiers: Chest pain type: unspecified Qualified Code(s): R07.9 - Chest pain, unspecified Condition: Stable Disposition: HOME, SELF-CARE Additional Instructions: Your workup is reassuring today. You have been tested for the coronavirus and you will be contacted with the results. Take the nausea medication if needed. Take the ativan for anxiety/panic attack only if needed. Follow up with your provider for additional management. Return for any concerning symptoms including fever, difficulty breathing, severe worsening pain, vomiting, or something is not right. She additional instructions because of coronavirus testing below. As a person under investigation for COVID-19, the [place] Department of Health and Human Services (division on public health) advises you to adhere to the following guidance until your test results are reported to you. If your test result is positive, you will receive additional information from your provider and your local health department at that time. Remain at home until you are cleared by the health provider or public health authorities. Keep a log of visitors to your home, notify any visitors to your home of your isolation status. If you plan to move to a new address or leave the [facility], notify the local health department in your County. Call your Doctor or seek care if you have an urgent medical need. Before seeking medical care, call him to get instructions from the provider before arriving at the medical office, clinic, or hospital. Notify them that you are being tested for the virus (COVID-19) so that arrangements can be made, as necessary, to prevent transmission to others in the healthcare setting. Next, notify the local health department in your county. If a medical emergency arises and you need to call 911, inform the first responders that you are being tested for the virus that causes COVID-19. Next, notify the local health department in your [facility]. Prescriptions: Lorazepam [Ativan 1 mg Tablet] 1 mg PO Q4 PRN #15 tab PRN Reason: Referrals: TATA ORTEZ MD [Primary Care Provider] - 02/15/20
[2020-02-13 22:39] LABS: ABSOLUTE EOSINOPHILS # (AUTO) 0.2 10^3/uL (0.0-0.6); ABSOLUTE LYMPHOCYTES (AUTO) 0.9 10^3/uL (0.5-4.7); ABSOLUTE MONOCYTES (AUTO) 0.7 10^3/uL (0.1-1.4); ABSOLUTE NEUT (AUTO) 4.6 10^3/uL (1.7-8.2); BASOPHILS % (AUTO) 0.7 % (0-2); HEMATOCRIT 36.8 % (37.9-51.0); HEMOGLOBIN 12.5 g/dL (13.5-17.0); LYMPHOCYTES % (AUTO) 14.7 % (13-45); MEAN CORPUSCULAR HEMOGLOBIN 30.7 pg (27.0-33.4); MEAN CORPUSCULAR HGB CONC 34.1 g/dL (32.0-36.0); MEAN CORPUSCULAR VOLUME 90 fl (80-97); MONOCYTES % (AUTO) 10.5 % (3-13); PLATELET COUNT 177 10^3/uL (150-450); RED BLOOD COUNT 4.07 10^6/uL (4.35-5.55); RED CELL DISTRIBUTION WIDTH 14.3 % (11.5-14.0); SEGMENTED NEUTROPHILS % (AUTO) 71.1 % (42-78); TOTAL CELLS COUNTED % (AUTO) 100 %; WHITE BLOOD COUNT 6.4 10^3/uL (4.0-10.5)
[2020-02-13 22:45] LABS: APPEARANCE,URINE CLEAR; BILIRUBIN,URINE NEGATIVE (NEGATIVE); COLOR,URINE STRAW; GLUCOSE, URINE NEGATIVE (NEGATIVE); KETONES,URINE NEGATIVE (NEGATIVE); LEUKOCYTE ESTERASE,URINE NEGATIVE (NEGATIVE); NITRITE,URINE NEGATIVE (NEGATIVE); PROTEIN,URINE NEGATIVE (NEGATIVE); URINE SPECIFIC GRAVITY 1.006; UROBILINOGEN,URINE NEGATIVE mg/dL (<2.0)
--- NOTE | 2020-02-13 23:08 | RADIOLOGY REPORT (SQ) ---
EXAM DESCRIPTION: XR CHEST 1 VIEW COMPLETED DATE/TME: 02/13/2020 22:12 CLINICAL HISTORY: 74 years, Male, chest pain, worsening shortness of breath and coug COMPARISON: Multiple priors, most recent from 02/12/2020 NUMBER OF VIEWS: 2 TECHNIQUE: 2 frontal radiographs of the chest were acquired LIMITATIONS: None. FINDINGS: Cardiac and mediastinal contours are stable. There is persistent blunting of the left costophrenic sulcus, unchanged from the recent radiograph dated 02/12/2020. Lungs are otherwise clear. No pneumothorax. IMPRESSION: Unchanged blunting of the left costophrenic sulcus which could indicate pleural thickening or a small left pleural effusion. copyright 2010 [employer]- All Rights Reserved
[2020-02-13 23:12] LABS: ALBUMIN 4.2 g/dL (3.5-5.0); ALKALINE PHOSPHATASE 72 U/L (38-126); ANION GAP 5 (5-19); ASPARTATE AMINO TRANSFERASE 28 U/L (17-59); BILIRUBIN,TOTAL 0.4 mg/dL (0.2-1.3); BLOOD UREA NITROGEN 10 mg/dL (7-20); CALCIUM 9.6 mg/dL (8.4-10.2); CARBON DIOXIDE 29 mmol/L (22-30); CHLORIDE 101 mmol/L (98-107); GLUCOSE 129 mg/dL (75-110); POTASSIUM 4.2 mmol/L (3.6-5.0); TOTAL PROTEIN 6.8 g/dL (6.3-8.2)
[2020-02-13 23:24] LABS: TROPONIN I 0.014 ng/mL
[2020-02-13] MEDS ORDERED: ONDANSETRON HCL INJ/PF 4 MG/2 ML SDV IV ONE (23:31)
[2020-02-14 04:18] VITALS: BP 142/75
--- NOTE | 2020-02-14 11:18 | EKG REPORT ---
SEVERITY:- ABNORMAL ECG - SINUS RHYTHM FIRST DEGREE AV BLOCK LEFT BUNDLE BRANCH BLOCK : Confirmed by: Yana Munoz 14-Feb-2020 11:17:39
== END 2020-02-14 04:42 | disposition home or self-care (01) ==
LOC: ER 21:27
DX: F41.9 Anxiety disorder, unspecified (principal); R05 Cough; R11.0 Nausea; R07.9 Chest pain, unspecified; R51 Headache; R06.00 Dyspnea, unspecified; E78.00 Pure hypercholesterolemia, unspecified; I10 Essential (primary) hypertension; E11.9 Type 2 diabetes mellitus without complications
CPT/HCPCS: 93005; 99284; 96374; 36415; 87040; 85025; 80053; 81001; 84484; 83880; 71045; 93010; U0003; J2405; C9803; 87150; 87635

== ENCOUNTER → 2020-07-25 | Outpatient (CLI) | payer MEDICARE, MEDICAID ==
[2020-07-25 14:16] LABS: ABSOLUTE BASOPHILS # (AUTO) 0.1 10^3/uL (0.0-0.2); ABSOLUTE EOSINOPHILS # (AUTO) 0.3 10^3/uL (0.0-0.6); ABSOLUTE LYMPHOCYTES (AUTO) 1.3 10^3/uL (0.5-4.7); ABSOLUTE MONOCYTES (AUTO) 0.6 10^3/uL (0.1-1.4); ABSOLUTE NEUT (AUTO) 4.4 10^3/uL (1.7-8.2); BASOPHILS % (AUTO) 0.8 % (0-2); EOSINOPHILS % (AUTO) 4.2 % (0-6); HEMATOCRIT 39.5 % (37.9-51.0); HEMOGLOBIN 13.2 g/dL (13.5-17.0); LYMPHOCYTES % (AUTO) 19.8 % (13-45); MEAN CORPUSCULAR HEMOGLOBIN 30.7 pg (27.0-33.4); MEAN CORPUSCULAR HGB CONC 33.5 g/dL (32.0-36.0); MEAN CORPUSCULAR VOLUME 92 fl (80-97); MONOCYTES % (AUTO) 8.9 % (3-13); PLATELET COUNT 196 10^3/uL (150-450); RED BLOOD COUNT 4.31 10^6/uL (4.35-5.55); SEGMENTED NEUTROPHILS % (AUTO) 66.3 % (42-78); TOTAL CELLS COUNTED % (AUTO) 100 %; WHITE BLOOD COUNT 6.6 10^3/uL (4.0-10.5)
[2020-07-25 14:30] LABS: ANION GAP 11 (5-19); BLOOD UREA NITROGEN 6 mg/dL (7-20); CALCIUM 9.8 mg/dL (8.4-10.2); CARBON DIOXIDE 29 mmol/L (22-30); CHLORIDE 95 mmol/L (98-107); GLUCOSE 147 mg/dL (75-110); POTASSIUM 4.8 mmol/L (3.6-5.0); TRIGLYCERIDES 84 mg/dL (<150)
[2020-07-25 14:41] LABS: DIRECT LDL 60 mg/dL (<100)
== END ==
LOC: OD 12:55
PROVIDERS: ATTEND Family Medicine Geriatric Medicine
DX: I10 Essential (primary) hypertension (principal); E78.5 Hyperlipidemia, unspecified; E11.21 Type 2 diabetes mellitus with diabetic nephropathy; Z79.899 Other long term (current) drug therapy
CPT/HCPCS: 36415; 80048; 80061; 82043; 82570; 83036; 84460; 85025

== ENCOUNTER → 2020-08-17 | Outpatient (CLI) | payer MEDICARE, MEDICAID ==
--- NOTE | 2020-08-18 11:21 | RADIOLOGY REPORT (SQ) ---
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 Reconstructed coronal and sagittal MPR images reviewed. All images stored on PAC S. All CT scanners at this facility use dose modulation, iterative reconstruction, and/or weight based d osing when appropriate to reduce radiation dose to as low as reasonably achievable (ALARA). [facility]: Dose Right [facility]: CareDose [facility]: Dose Right [facility]: Teradose 4D [facility]: Amplidata RADIATION DOSE: mGy. LIMITATIONS: None. FINDINGS: SKULL BASE: Intact. MAJOR SALIVARY GLANDS: No solid or cystic masses. No inflammatory changes. LYMPHADENOPATHY: No adenopathy. MUCOSAL MASSES OR ASYMMETRY: No mucosal masses or asymmetry. LARYNX/CORDS: No abnormal findings. LUNG APICES: Clear. BONES: Intact. THYROID: Normal size. No masses. PARANASAL SINUSES: Clear. OTHER: No other significant finding. IMPRESSION: NO SIGNIFICANT FINDING IN THE SOFT TISSUES OF THE NECK. TECHNICAL DOCUMENTATION: JOB ID: [id number] Quality ID # [id number]: Final reports with documentation of one or more dose reduction techniques (e.g., Au tomated exposure control, adjustment of the mA and/or kV according to patient size, use of iterative reconstruction technique) 2010 [employer]- All Rights Reserved Reading location - IP/workstation name: [email or web address]
== END ==
LOC: RAD 16:00
PROVIDERS: ATTEND Family Medicine Geriatric Medicine
DX: C13.9 Malignant neoplasm of hypopharynx, unspecified (principal)
CPT/HCPCS: 70490

== ENCOUNTER → 2020-08-30 | Outpatient (CLI) | payer MEDICARE, MEDICAID ==
[2020-08-30 10:27] LABS: ABSOLUTE BASOPHILS # (AUTO) 0.1 10^3/uL (0.0-0.2); ABSOLUTE EOSINOPHILS # (AUTO) 0.3 10^3/uL (0.0-0.6); ABSOLUTE LYMPHOCYTES (AUTO) 1.6 10^3/uL (0.5-4.7); ABSOLUTE MONOCYTES (AUTO) 0.8 10^3/uL (0.1-1.4); ABSOLUTE NEUT (AUTO) 3.8 10^3/uL (1.7-8.2); EOSINOPHILS % (AUTO) 4.2 % (0-6); HEMATOCRIT 36.4 % (37.9-51.0); HEMOGLOBIN 12.3 g/dL (13.5-17.0); LYMPHOCYTES % (AUTO) 24.9 % (13-45); MEAN CORPUSCULAR HEMOGLOBIN 30.9 pg (27.0-33.4); MEAN CORPUSCULAR HGB CONC 33.9 g/dL (32.0-36.0); MEAN CORPUSCULAR VOLUME 91 fl (80-97); MONOCYTES % (AUTO) 11.6 % (3-13); PLATELET COUNT 200 10^3/uL (150-450); RED CELL DISTRIBUTION WIDTH 13.9 % (11.5-14.0); SEGMENTED NEUTROPHILS % (AUTO) 58.3 % (42-78); TOTAL CELLS COUNTED % (AUTO) 100 %; WHITE BLOOD COUNT 6.6 10^3/uL (4.0-10.5)
[2020-08-30 10:48] LABS: ANION GAP 10 (5-19); BLOOD UREA NITROGEN 14 mg/dL (7-20); CALCIUM 9.3 mg/dL (8.4-10.2); CARBON DIOXIDE 25 mmol/L (22-30); CHLORIDE 98 mmol/L (98-107); GLUCOSE 155 mg/dL (75-110); POTASSIUM 4.7 mmol/L (3.6-5.0)
== END ==
LOC: OD 09:38
PROVIDERS: ATTEND Family Medicine Geriatric Medicine
DX: I10 Essential (primary) hypertension (principal); D64.9 Anemia, unspecified; Z79.899 Other long term (current) drug therapy
CPT/HCPCS: 36415; 80048; 85025